=== PATIENT | female | born 1975 | race Caucasian/White ===

== ENCOUNTER → 2016-06-30 | Outpatient (CLI) | payer OTHER ==
--- NOTE | 2016-06-30 18:09 | DX ---
Thoracic spine, 3 views. June 30, 2016. History: Trauma. Findings: Minimal features of degenerative disk disease at T7-T8, T8-T9, T9-T10, T10-T11 with mild in tervertebral disk height loss. No fracture or subluxation. Visualized aspects of the heart and lungs appear unremarkable. Impression: 1. Mild lower thoracic degenerative disk disease, otherwise negative.
== END ==
LOC: BRMIMAGING 16:24
PROVIDERS: ATTEND Family Medicine
DX: M54.6 Pain in thoracic spine (principal)
CPT/HCPCS: 72072-PO

== ENCOUNTER → 2016-07-11 | Outpatient (CLI) | payer OTHER ==
--- NOTE | 2016-07-11 16:31 | MA ---
Screening Digital Mammogram With iCAD Analysis Clinical Indications: Routine screening. Technique: Standard cephalocaudal and mediolateral oblique projections were obtained. This examinatio n was processed by the iCAD computer aided detection system. Comparison: May 2015, April 2014. Breast density: Type C; Heterogeneously dense. Findings: CAD was reviewed. There is possible developing architectural change in the upper left breas t on the oblique view. No suspicious microcalcifications are seen. Heterogeneous glandular pattern of the right breast is stable. Impression: Possible developing left breast architectural change requires further evaluation, BI-RADS 0. Recommendation: Spot compression assessment of the left breast with ultrasound suggested if the abnor mality persists on diagnostic evaluation. [facility] will send a result letter to the patient. Dense breast parenchyma diminishes mammographic sensitivity. Negative mammography should not preclude additional workup of a clinically suspicious finding. The patient's information is entered into a reminder system with a target due date for her next mammo gram.
== END ==
LOC: BRMIMAGING 11:39
DX: Z12.31 Encounter for screening mammogram for malignant neoplasm of breast (principal)
CPT/HCPCS: G0202

== ENCOUNTER → 2016-07-21 | Outpatient (CLI) | payer OTHER ==
--- NOTE | 2016-07-21 09:43 | MA ---
Diagnostic Digital Left Mammography Clinical History: 40-year-old female with possible developing architectural change in the superior le ft breast on recent screening mammography. Technique: Digital MLO as well as conventional MLO and true mediolateral views of the left breast are compared with previous studies dated July 11, 2016, May 24, 2015, May 12, 2014, April 28, 2014. Additionally, the exam is CAD checked. Breast Density: Type C. Heterogeneously dense. CAD Evaluation: Reviewed. Findings: The area of parenchymal asymmetry seen in the superior posterior left breast does not persi st with spot compression, and appears to have been related to superimposition of normal fibroglandula r structures. Impression: Benign mammography. BI-RADS Category 2. Recommendation: Routine annual mammographic screening. One could consider 3D tomosynthesis screening in the future, given the breast heterogeneity. [facility] will send a result letter to the patient. Negative mammography should not preclude additional workup of a clinically suspicious finding. The patient's information is entered into a reminder system with a target due date for her next mammo gram.
== END ==
LOC: BRMIMAGING 08:56
DX: Z12.39 Encounter for other screening for malignant neoplasm of breast (principal); R92.2 Inconclusive mammogram
CPT/HCPCS: G0206